=== PATIENT | male | born 1970 | race Caucasian/White ===

== ENCOUNTER 2019-10-05 00:19 | Emergency (ER) | payer SELFPAY ==
[~2019-10-05] VITALS: Ht 177.8 cm; Wt 120.2 kg
[2019-10-05 00:28] VITALS: Ht 177.8 cm; Wt 120.2 kg
[2019-10-05 00:54] VITALS: BP 162/86
== END 2019-10-05 00:54 | disposition home or self-care (01) ==
LOC: ED 00:19
DX: J11.1 Influenza due to unidentified influenza virus with other respiratory manifestations (principal)